=== PATIENT | female | born 1965 | race Caucasian/White ===

== ENCOUNTER → 2020-03-25 09:49 | Outpatient (CLI) | payer BC, SELFPAY ==
--- NOTE | 2020-03-25 09:54 | US_ITS ---
PROCEDURE: US LIVER CLINICAL INDICATION: ELEVATED LIVER ENZYMES COMPARISON: No exams were available for comparison FINDINGS: PANCREAS: Unremarkable. No obvious mass or abnormal fluid collection. No ductal dilatation LIVER: Diffuse increased echogenicity of the liver with poor through transmission of sound consistent with hepatic steatosis. There is a hypoechoic area in the right hepatic lobe anteriorly consistent with a small cyst measuring 14 mm. There is appropriate direction of blood flow within non dilated portal vein. RIGHT KIDNEY: Unremarkable. Normal size and echogenicity. No hydronephrosis GALLBLADDER: No gallstones, gallbladder wall thickening, pericholecystic fluid, or biliary dilatation. IMPRESSION: Fatty liver with small hepatic cyst otherwise negative right upper quadrant ultrasound Dictated by: Moo Pruett MD 03/25/2020 16:01 oMo Pruett MD in [place] 03/25/2020 16:01
== END ==
PROVIDERS: PCP Family Medicine; Visit Provider Nurse Practitioner Family
DX: R74.8 Abnormal levels of other serum enzymes (principal)
CPT/HCPCS: 76705

== ENCOUNTER 2024-09-10 15:35 | Outpatient (CLI) | payer BC, SELFPAY ==
[2024-09-10 18:49] LABS: Basophils % 0.6 % (0.1-2.0); Eosinophils % 0.6 % (0.1-12.0); Hemoglobin 14.3 g/dL (12.2-16.2); Lymphocytes # 1.9 K/mm3 (0.7-4.5); Lymphocytes % 29.7 % (10-50); Mean Corpuscular Hemoglobin 30.8 pg (27.0-31.2); Mean Corpuscular Volume 90.5 fl (81-99); Mean Platelet Volume 11.7 fl (7.4-10.4); Monocytes # 0.4 K/mm3 (0.1-1.0); Monocytes % 6.5 % (1.7-9.3); Neutrophils # 3.9 K/mm3 (1.8-7.8); Neutrophils % 62.4 % (37.0-80.0); Nucleated Red Blood Cells # 0 10^3/uL; Nucleated Red Blood Cells % 0 %; Platelet Count 178 K/mm3 (142-424); Red Blood Count 4.64 M/mm3 (4.20-5.40); Red Cell Distribution Width 12.6 % (11.5-17.5); Red Cell Distribution Width-SD 41.1 fL; White Blood Count 6.3 K/mm3 (4.8-10.8)
[2024-09-10 19:22] LABS: Chloride 104 mmol/L (98-107)
[2024-09-10 19:23] LABS: Potassium 3.8 mmoL/L (3.5-5.1); Sodium 142 mmol/L (136-145)
[2024-09-10 19:25] LABS: Alanine Aminotransferase 24 U/L (12-78); Anion Gap 13.8 mEq/L (5-15); Aspartate Amino Transferase 34 U/L (14-36); Blood Urea Nitrogen 10 mg/dl (7-17); Carbon Dioxide 28 mmol/L (22.0-30.0); Estimated Glomerular Filt Rate 103 ml/min (>60); GFR (African American) 125 ML/MIN (>60)
[2024-09-10 19:26] LABS: Albumin/Globulin Ratio 1.7 (1.1-1.8); Alkaline Phosphatase 73 U/L (38-126); Bilirubin,Total 0.6 mg/dl (0.2-1.3); Calcium 9.2 mg/dl (8.4-10.2); Cholesterol 204 mg/dl (140-200); Glucose 95 mg/dl (74-100); HDL Cholesterol 69 mg/dl (40-60); Triglycerides 140 mg/dl (30-150); VLDL Cholesterol 28 mg/dL (0-40)
[2024-09-10 19:32] LABS: NT Pro Brain Natriuretic Pep. 101 pg/mL (0-125)
[2024-09-10 19:37] LABS: Direct LDL Cholesterol 114.81 mg/dL (100-129)
[2024-09-10 19:42] LABS: 25-OH Vitamin D, Total 22.6 ng/mL (30-100)
[2024-09-10 19:53] LABS: Thyroid Stimulating Hormone 2.03 uIU/mL (0.465-4.68)
[2024-09-10 21:56] LABS: Hemoglobin A1C 5.7 % (4.0-6.0)
== END 2024-09-10 23:59 | disposition home or self-care (01) ==
LOC: LAB.DROPOF 09-11 10:38
PROVIDERS: PCP Family Medicine; Visit Provider Family Medicine
DX: I10 Essential (primary) hypertension (principal); R53.83 Other fatigue; R06.00 Dyspnea, unspecified; R60.0 Localized edema; E66.9 Obesity, unspecified; Z68.42 Body mass index [BMI] 45.0-49.9, adult
CPT/HCPCS: 80053; 80061; 82306; 83036; 83880; 84443; 85025

== ENCOUNTER 2024-09-25 10:07 | Outpatient (CLI) | payer BC, SELFPAY ==
--- NOTE | 2024-09-25 | CA_ITS ---
APPROVED REPORT EXAM: Comprehensive 2D, Doppler, and color-flow Echocardiogram Shape Brick Molder: Shelley Fisher CRT Ht: 5 ft 4 in Wt: 270lbs BSA: 2.22 BP: 148/90 mmHg Indications: Shortness of Breath, Fatigue, Peripheral Edema, Hypertension/HDD 2D Dimensions LA Volume 40.60 mL LA Volume Index 17.80 mL/m2 (M/F) 16-34 M-Mode Dimensions RVDd 2.41 cm (0.9-2.6) LA Diam 2.91 cm (1.9-4.0) LVDd 4.86 cm (3.5-5.7) LVDs 2.69 cm (3.5-5.7) IVSd 1.45 cm (0.6-1.1) PWd 0.92 cm (0.6-1.1) EF (Teich) 75.80% FS 44.70% EDV (Teich) 110.70 mL TAPSE 1.80 (<1.7) ESV (Teich) 26.80 mL LV Diastology E Decel Time 197 (160-240 msec) E/A Ratio 0.89 MED A' 9.30 cm/s LAT A' 12.50 cm/s Aortic Valve AO Peak GR. 7.20 mmHg Mitral Valve MV A Velocity 116.0 (40-130 cm/s) E/A Ratio 0.89 Pulmonary Valve PV Peak Velocity 128.0 (50-150 cm/s) Tricuspid Valve TR P. Velocity 210.00 cm/s RAP Estimate 10.00 mmHg RVSP 27.60 mmHg Left Ventricle The left ventricle is normal size. The left ventricular systolic function is normal. The left ventricular ejection fraction is within the normal range. There is increased LV wall thickness. There is normal LV segmental wall motion. The left ventricular diastolic function is normal. LVEF is 55%. Right Ventricle The right ventricle is mildly dilated. The right ventricular systolic function is normal. Atria The left atrium size is normal. The right atrium size is normal. There is no Doppler evidence of interatrial shunt. Aortic Valve The aortic valve is mildly thickened. There is no aortic valvular stenosis. No aortic regurgitation is present. Mitral Valve The mitral valve is normal in structure. No evidence of mitral valve stenosis. Trace mitral regurgitation. Tricuspid Valve Tricuspid valve is grossly normal in structure and function. Trace tricuspid regurgitation. There is insufficient TR jet to estimate RVSP. Pulmonic Valve The pulmonary valve is normal in structure. Trace pulmonic regurgitation. Great Vessels The aortic root is normal in size. IVC is normal in size and collapses >50% with inspiration. Pericardium There is no pericardial effusion. Other Information Study Quality: Technically Difficult Conclusion Technically difficult study due to poor acoustic windows. Normal biventricular systolic function. Mild RV dilation. No significant valvular stenosis or regurgitation. Electronically signed by : Angelika Barba MD 10/01/2024 22:17:18
== END 2024-09-25 23:59 | disposition home or self-care (01) ==
LOC: RT 10:10
PROVIDERS: PCP Family Medicine; Visit Provider Family Medicine
DX: I10 Essential (primary) hypertension (principal)
CPT/HCPCS: 93306

== ENCOUNTER 2024-12-11 16:34 | Outpatient (CLI) | payer BC, SELFPAY ==
[2024-12-15 12:21] LABS: Anion Gap 20.7 mEq/L (5-15); Blood Urea Nitrogen 21 mg/dl (7-17); Calcium 10.4 mg/dl (8.4-10.2); Carbon Dioxide 28 mmol/L (22.0-30.0); Chloride 97 mmol/L (98-107); Creatinine,Serum 0.70 mg/dl (0.52-1.04); Estimated Glomerular Filt Rate 86 ml/min (>60); GFR (African American) 104 ML/MIN (>60); Glucose 105 mg/dl (74-100); Potassium 4.7 mmoL/L (3.5-5.1); Sodium 141 mmol/L (136-145)
== END 2024-12-11 23:59 | disposition home or self-care (01) ==
LOC: LAB.DROPOF 16:35
PROVIDERS: PCP Family Medicine; Visit Provider Family Medicine
DX: I10 Essential (primary) hypertension (principal)
CPT/HCPCS: 80048